=== PATIENT | female | born 1985 | race Caucasian/White ===

== ENCOUNTER → 2016-08-22 | Outpatient (CLI) | payer OTHER ==
[~2016-08-22] MED LIST: PRENTAB26 PO
== END | disposition home or self-care (01) ==
LOC: C.PAPS 11:32
PROVIDERS: ATTEND Obstetrics & Gynecology
DX: Z01.419 Encounter for gynecological examination (general) (routine) without abnormal findings (principal)

== ENCOUNTER → 2017-07-01 | Outpatient (CLI) | payer OTHER | END | disposition home or self-care (01) | LOC: C.LABSPEC 15:46 | PROVIDERS: ATTEND Obstetrics & Gynecology | DX: Z34.91 Encounter for supervision of normal pregnancy, unspecified, first trimester (principal) ==

== ENCOUNTER → 2017-07-08 | Outpatient (CLI) | payer OTHER ==
[2017-07-08 13:14] LABS: BASO % 0.1 %; BASO ABS # 0.01 K/uL (0-0.2); EOS % 0.2 %; EOS ABS # 0.02 K/uL (0-0.5); HEMATOCRIT 43.3 % (37-47); HEMOGLOBIN 14.7 g/dL (12.0-16.0); IG# 0.03 K/uL (0.00-0.02); LYMPH % 24.6 %; LYMPH ABS # 2.59 K/uL (1.2-3.4); MEAN CELL VOLUME 88.5 fL (80-100); MEAN CORPUSCULAR HEMOGLOBIN 30.1 pg (25-34); MEAN CORPUSCULAR HGB CONC 33.9 g/dl (32-36); MEAN PLATELET VOLUME 9.8 fL (7.4-10.4); MONO % 11.1 %; MONO ABS # 1.17 K/uL (0.11-0.59); NEUT % 63.7 %; NEUT ABS # 6.71 K/uL (1.4-6.5); PLATELET COUNT 298 K/uL (130-400); RED CELL DISTRIBUTION WIDTH CV 13.5 % (11.5-14.5); WHITE BLOOD COUNT 10.53 K/uL (4.8-10.8)
== END | disposition home or self-care (01) ==
LOC: C.LAB1850 12:23
PROVIDERS: ATTEND Obstetrics & Gynecology
DX: Z34.91 Encounter for supervision of normal pregnancy, unspecified, first trimester (principal)

== ENCOUNTER 2020-12-12 13:00 | Inpatient (IN) ==
[2020-12-13] MEDS ORDERED: OXYTOCIN 30 UNITS/500 ML BAG IV PRN ×2 (19:38→20:20)
--- NOTE | 2020-12-13 19:49 | History & Physical Report ---
Date of Service December 13, 2020 Assessment & Plan (1) 40 weeks gestation of : (2) Encounter for induction of labor: Plan: admit, gbs neg, covid neg. plan pit induction, arom. epidural on demand. fetus category one. anticipate . Admission and Anticipated Discharge Date Admission Date: December 13, 2020 History of Present Illness Chief Complaint: induction Primary Care Provider: Annia Vann PA-C Patient is a 35yowf with iup at 40 3/7 weeks who presents for induction for postdates. She notes she is having contractions. no vb/lof. +fm. uncomplicated. ama labs--Blood Type A Negative 05/02/20 Antibody Screen NEGATIVE 09/19/20 Hemoglobin 13.1 g/dL (12.0-16.0) 09/19/20 Hematocrit 39.3 % (37-47) 09/19/20 Mean Corpuscular Volume 91.1 fL (80-100) 05/02/20 Platelet Count 337 K/uL (130-400) 05/02/20 Rubella IgG Antibody Immune (Immune) 05/02/20 Rapid Plasma Reagin Nonreactive (Nonreactive) 05/02/20 Hepatitis B Surface Antigen Neg (Neg) 05/02/20 HIV (1&2) Ab and P24 Ag, 4th Gener Neg (Neg) 05/02/20 Glucose 1 Hour 50 gm Load 133 mg/dl (70-130) H 09/19/20 OB Optional Labs: Chlamydia trachomatis RNA NOT DETECTED (NOT DETECTED) 05/02/20 Neisseria gonorrhoeae RNA NOT DETECTED (NOT DETECTED) 05/02/20 Thyroid Stimulating Hormone (TSH) 2.450 uIu/ml (0.300-4.500) 04/21/19 Labs Reviewed: declines cfDNA declines cf/sma Allergies Allergy/AdvReac Type Severity Reaction Status Date / Time No Known Allergies Allergy Verified 12/12/20 14:42 Home Medications Medication Instructions Recorded Confirmed Type prenat.vits,alan,sig-lens-kncbw 1 tab PO DAILY #30 tab 04/09/20 12/13/20 Rx Patient History Medical History Atypical squamous cells of undetermined significance (ASC-US) on cervical Pap smear 12/10/11 Encounter for induction of labor Encounter for pre-operative examination Normal in multigravida, antepartum Uterine contractions Surgical History History of wisdom tooth extraction Family History Grandmother (Maternal) Ovarian cancer Breast cancer Grandfather (Paternal) Diabetes Denies family history of Colorectal cancer Uterine cancer Social History Smoking Status: Never smoker Second Hand Exposure: No; Hx Alcohol Use: No Hx Substance Use: No Preferred Language: Occitan Communication Ability: Effective 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 current occupational status: employed current occupation: self employeed. Other Information That Helps Us Care for You: No Feels Safe at Home: Yes Safety Concerns: Feels Safe At This Time Assistive Devices: None OB History 02/27--38 weeks 8#10, male, 18--40 weeks, , 9#10, female Physical Exam Constitutional: WD/WN, vitals as above Gastrointestinal (Abdomen): soft, gravid, nt efw 9-10# Psychiatric: A+Ox3, euthymic affect Genitourinary: cx--4-5/50/-3 toco--irregular contractions efm--140s wtih mod variaiblity, accels present, no decels Results & Data ([place]) Vital Signs (Past 12 Hours) Vital Signs Temp Pulse Resp BP 12/13/20 19:22 37.0 C 87 18 128/75 Coding Level of Care Code None Diagnoses 40 weeks gestation of Z3A.40 Encounter for induction of labor Z34.90
[2020-12-13 20:12] LABS: Hematocrit (blood only) 36.9 % (37-47); Hemoglobin 12.3 g/dL (12.0-16.0); Mean Corpuscular Hemoglobin 28.2 pg (25-34); Mean Corpuscular Hgb Conc 33.3 g/dL (32-36); Mean Corpuscular Volume 84.6 fL (80-100); Mean Platelet Volume 10.5 fL (7.4-10.4); Platelet Count 261 K/uL (130-400); RDW Coefficient of Variation 14.2 % (11.5-14.5); RDW Standard Deviation 44.2 fL (36.4-46.3); Red Blood Count 4.36 M/uL (4.2-5.4); White Blood Count 8.56 K/uL (4.8-10.8)
[2020-12-13] MEDS: LACTATED RINGER'S 1,000 ML IV PRN ×2 (20:21→23:21)
[2020-12-13] MEDS ORDERED: fentaNYL citrate 100 MCG/2 ML VIAL ONE (22:49)
[2020-12-13] MEDS ORDERED: BUPIVACAINE 0.25% 30 ML VIAL ONE (22:49)
[2020-12-13] MEDS ORDERED: SODIUM CHLORIDE 0.9% INJ 10 ML VIAL ONE (22:49)
[2020-12-13] MEDS ORDERED: ePHEDrine sulfate 50 MG/ML AMP ONE (22:49)
[2020-12-13] MEDS ORDERED: fentaNYL 2MCG/ML ROPIVACAINE 1.25MG/ML 100 ML BAG EPI ONE (22:50)
[2020-12-14] MEDS ORDERED: diphenhydrAMINE 50 MG/ML VIAL IV PRN (00:25)
[2020-12-14] MEDS ORDERED: ePHEDrine sulfate 50 MG/ML AMP IV PRN (00:25)
[2020-12-14] MEDS ORDERED: ONDANSETRON INJ 2 MG/ML 2 ML VIAL IV PRN (00:25)
[2020-12-14] MEDS ORDERED: NALBUPHINE HCL INJ 10 MG/ML AMP IV PRN (00:25)
[2020-12-14] MEDS ORDERED: NALOXONE HCL 1 MG in SODIUM CHLORIDE 0.9% 1000ML 1,000 ML IV PRN (00:25)
[2020-12-14] MEDS ORDERED: fentaNYL 2MCG/ML ROPIVACAINE 1.25MG/ML 100 ML BAG EPI PRN (00:25)
[2020-12-14] MEDS ORDERED: NALOXONE HCL 0.4 MG/1 ML VIAL/CARP IV PRN (00:25)
--- NOTE | 2020-12-14 00:25 | Anesthesia Procedure Note ---
Date of Service December 14, 2020 Anesthesia Post Epidural Note Vital Signs Vital Signs: Temp Pulse Resp BP Pulse Ox 36.9 C 102 H 18 118/56 L 98 12/13/20 23:00 12/14/20 00:21 12/14/20 00:00 12/14/20 00:21 12/14/20 00:16 Notes Mental Status: alert / awake / arousable Nausea / Vomiting: adequately controlled Pain: adequately controlled Airway Patency, RR, SpO2: stable & adequate BP & HR: stable & adequate Hydration State: stable & adequate Neuraxial Anesthesia: was administered and sensory block is resolving Anesthetic Complications: no major complications apparent and Pt Satisfied with anesthetic care Epidural: Removed without complications and With tip intact
--- NOTE | 2020-12-14 00:25 | Anesthesiology Consultation ---
Date of Service December 14, 2020 Assessment & Plan Chart Review Chart Review: Patient NOT seen in Pre Admission Testing and Acceptable Risk for Labor Epidural Consults Requested none ASA ASA2 Proposed Anesthesia Anesthesia Type: Labor Epidural Risk / Benefits Reviewed With: PT / POA / Parent / Guardian, Accepts Plan and Informed Consent Obtained History Height/Weight Height: 5 ft 6 in Weight: 99.337 kg Allergies Allergy/AdvReac Type Severity Reaction Status Date / Time No Known Allergies Allergy Verified 12/12/20 14:42 Medications Home Medications Medication Instructions Recorded Confirmed Last Taken prenat.vits,alan,idu-hsfy-direv 1 tab PO DAILY #30 tab 04/09/20 12/13/20 12/06/20 08:00 Active Medications Generic Name Dose Route Start Last Admin Trade Name Freq PRN Reason Stop Dose Admin Lactated Ringer's 1,000 mls @ 125 mls/hr 12/13/20 19:38 12/13/20 23:21 Lr IV 12/15/20 19:37 999 mls/hr .Q8H PRN Administration L&D Protocol Protocol Oxytocin 30 units in 500 mls @ 11 mls/hr 12/13/20 20:20 12/13/20 23:00 Pitocin IV 12/15/20 20:19 0.66 units/hr .Q24H PRN 11 mls/hr Labor Induction/Augmentation Titration Protocol 0.66 UNITS/HR Past Medical History Medical History Atypical squamous cells of undetermined significance (ASC-US) on cervical Pap smear 12/10/11 Encounter for induction of labor Encounter for pre-operative examination Normal in multigravida, antepartum Uterine contractions Exercise / Class Metabolic Activity II 4-5 Yardwork/Stairs/Walk up hill Past Family History Family History Grandmother (Maternal) Ovarian cancer Breast cancer Grandfather (Paternal) Diabetes Denies family history of Colorectal cancer Uterine cancer Past Surgical History Surgical History History of wisdom tooth extraction Past Anesthesia History No Hx of Anesthesia Complications and No Family Hx of Anesthesia Complications History of PONV No Hx of PONV and No Hx of Motion Sickness Social History Smoking Status: Never smoker Hx Alcohol Use: No Hx Substance Use: No substance use type: does not use Physical Exam Vital Signs Last Vital Signs Temp 36.9 C 12/13/20 23:00 Pulse 102 H 12/14/20 00:21 Resp 18 12/14/20 00:00 BP 118/56 L 12/14/20 00:21 Pulse Ox 98 12/14/20 00:16 ENMT Mouth: no dentition abnormality Thyromental Distance: > or= 3.5 Finger Breadths Mallampati Class: II Neck normal visual inspection Respiratory normal respiratory effort Auscultation: lungs clear to auscultation bilaterally Cardiovascular Rate/Rhythm: regular rate and regular rhythm Psychiatric Orientation: alert Testing Laboratory Results 12/13/20 20:00
--- NOTE | 2020-12-14 00:37 | Delivery Summary ---
Vaginal Delivery Summary Date of Service December 14, 2020 Vaginal Delivery Summary [facility] Pre-operative Diagnosis: at 40 4/7 Post-operative Diagnosis: same Procedure: pitocin induction epidural arom EBL: 300cc Anesthesia: epidural Procedure: The patient presented to labor and delivery for postdates induction. She was admitted and underwent pitocin induction. She received an epidural when she became uncomfortable. Shorthly thereafter, she felt pressure, was c/c/+1. AROM for clear fluid. The patient pushed for 2 contractions to deliver a viable male in clarisa position. The rest of the was then delivered without difficulty through a loose nuchal cord. The baby was vigorous. The nose and mouth were bulb suctioned and the infant was placed in the maternal abdomen for drying and attention. Cord was clamped and cut at one minute of life. Cord blood and segment obtained. Placenta delivered spontaneous, intact with a three vessel cord. Cervix/sulci/rectum/perineum were intact. Hemostasis obtained with dilute pitocin and fundal massage. Apgars were pending. Mother and baby doing well at the end of the delivery. [facility] Vaginal Delivery Charge Delivery Type Details: [facility]
[2020-12-14] MEDS ORDERED: ACETAMINOPHEN 325 MG TAB PO PRN (00:38)
[2020-12-14] MEDS ORDERED: oxyCODONE/ACETAMINOPHEN 5mg/325mg TAB PO PRN (00:38)
[2020-12-14] MEDS ORDERED: OXYTOCIN 30 UNITS/500 ML BAG IV PRN (00:38)
[2020-12-14] MEDS ORDERED: DIPHTHERIA/TETANUS/PERTUSSIS 0.5 ML SYR/VIAL IM ONE (00:38)
[2020-12-14] MEDS ORDERED: SUPERCREAM 0.870% 15 GM JAR EXT PRN (00:38)
[2020-12-14] MEDS ORDERED: bisacodyL 10 MG SUPP PR PRN (00:38)
[2020-12-14] MEDS ORDERED: BENZOCAINE 20% AER SPR 82.5 GM CAN EXT PRN (00:38)
[2020-12-14] MEDS ORDERED: HYDROCORTISONE ACETATE 25 MG SUPP PR PRN (00:38)
[2020-12-14 06:21] LABS: Hematocrit (blood only) 37.4 % (37-47); Hemoglobin 12.4 g/dL (12.0-16.0)
--- NOTE | 2020-12-14 06:52 | Obstetrical Progress Note ---
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 Keep pt for 24 hrs. -Vitals reviewed- HDS, afebrile -A-, GBS-, Rubella immune -Encourage ambulation, regular diet -Pain control with ibuprofen, acetaminophen PRN -Encouraged , baby is having trouble latching <Liliana Pittman MD, FACOG - Last Filed: 12/14/20 06:58> (1) care following vaginal delivery: Subjective <Andrew OrtizDO - Last Filed: 12/14/20 06:55> Ambulation: ambulating normally Voiding: no voiding problems Passing Gas:: Yes Diet Tolerance:: regular diet Lochia:: Small Feeding Type:: breast feeding Current Pain Level(1-10): 3 frame changer delivery at 00:15 s/p . Patient seen and examined at bedside. Reports no acute overnight events. Review of Systems All systems reviewed & are unremarkable except as noted in HPI & below Physical Exam <Andrew Ortiz - Last Filed: 12/14/20 06:55> General: Alert, oriented, no acute distress Cardiac: Regular rate and rhythm, normal S1, S2. No murmurs appreciated. Respiratory: Clear to auscultation b/l with good air flow entry, symmetric chest rise and fall. No wheezes or crackles. No increased work of breathing or accessory muscle use Abdomen: Soft, nontender, nondistended. Fundus firm and palpable at 1 cm below umbilicus. No guarding or rebound. Skin: No rashes or lesions Extremities: Warm, dry, well-perfused with capillary refill <2s b/l. No lower extremity edema, erythema or swelling. Negative Marcelina's sign b/l. Results & Data ([facility]) <Andrew OrtizDO - Last Filed: 12/14/20 06:55> Vital Signs (Past 12 Hours) Vital Signs Temp Pulse Pulse Resp BP BP Pulse Ox 12/14/20 03:00 37.1 C 96 H 20 128/64 12/14/20 02:22 90 117/64 12/14/20 02:20 90 117/64 12/14/20 02:07 90 121/70 12/14/20 01:52 113 H 127/79 12/14/20 01:50 90 18 117/64 12/14/20 01:37 108 H 121/63 12/14/20 01:22 100 H 131/68 12/14/20 01:20 86 18 132/62 12/14/20 01:07 86 132/62 12/14/20 01:05 86 18 132/62 12/14/20 00:52 151 H 115/70 12/14/20 00:50 18 115/70 12/14/20 00:37 203 H 105/56 L 12/14/20 00:35 18 105/56 L 12/14/20 00:21 102 H 118/56 L 12/14/20 00:20 18 105/56 L 12/14/20 00:16 103 H 124/59 L 98 12/14/20 00:11 133 H 95 12/14/20 00:08 100 H 89 L 12/14/20 00:07 103 H 138/62 12/14/20 00:06 104 H 100 12/14/20 00:02 103 H 122/63 12/14/20 00:01 92 H 100 12/14/20 00:00 18 12/13/20 23:56 98 H 118/55 L 100 12/13/20 23:55 18 12/13/20 23:51 105 H 100 12/13/20 23:50 109 H 18 125/60 12/13/20 23:48 107 H 142/67 H 12/13/20 23:47 112 H 137/70 12/13/20 23:45 117 H 20 100 12/13/20 23:44 112 H 172/74 H 12/13/20 23:42 129 H 149/73 H 91 12/13/20 23:40 94 H 20 136/63 99 12/13/20 23:35 99 H 94 12/13/20 23:34 113 H 89 L 12/13/20 23:30 94 H 100 12/13/20 23:25 79 100 12/13/20 23:23 92 H 125/90 12/13/20 23:21 96 H 94 12/13/20 23:20 105 H 98 12/13/20 23:00 36.9 C 18 12/13/20 22:24 96 H 127/63 12/13/20 21:23 96 H 113/74 12/13/20 20:22 81 128/67 12/13/20 19:22 37.0 C 87 18 128/75 <Liliana Pittman MD, FACOG - Last Filed: 12/14/20 06:58> Co-Signing Physician Notes Resident Physician Supervision Note: I interviewed and examined the patient. Discussed with Dr. Ortiz and agree with findings and plan as documented in the note. Any exceptions or clarifications are listed here: Doing well. Routine care. Documented By: Liliana Pittman MD, FACOG
[2020-12-14] MEDS: IBUPROFEN 600 MG TAB PO PRN ×4 (08:25→21:12)
[2020-12-14] MEDS: PRENATAL VITAMIN 1 TAB PO SCH (08:26)
[2020-12-14] MEDS: DOCUSATE SODIUM 100 MG CAP PO SCH ×2 (08:26→21:13)
[2020-12-15] MEDS: IBUPROFEN 600 MG TAB PO PRN (06:52)
--- NOTE | 2020-12-15 07:03 | Obstetrical Progress Note ---
Date of Service <Andrew Ortiz DO - Last Filed: 12/15/20 07:03> December 15, 2020 Assessment & Plan <Andrew Ortiz DO - Last Filed: 12/15/20 07:03> (1) care following vaginal delivery: 35 yo PPD 1 s/p at 40 weeks -Continue routine care, D/C today. -Vitals reviewed- HDS, afebrile -A-, GBS-, Rubella immune; Rhogam received yesterday. -Encourage ambulation, regular diet -Pain control with ibuprofen, acetaminophen PRN -Encouraged -F/u in 6 weeks with OB <Alaina Watson MD - Last Filed: 12/15/20 08:14> (1) care following vaginal delivery: Subjective <Andrew Ortiz DO - Last Filed: 12/15/20 07:03> Ambulation: ambulating normally Voiding: no voiding problems Passing Gas:: Yes Diet Tolerance:: regular diet Lochia:: Small Feeding Type:: breast feeding Current Pain Level(1-10): 3 PPD 1 s/p . Patient seen and examined at bedside. Reports no acute overnight events. Review of Systems All systems reviewed & are unremarkable except as noted in HPI & below Physical Exam <Andrew Ortiz DO - Last Filed: 12/15/20 07:03> General: Alert, oriented, no acute distress Cardiac: Regular rate and rhythm, normal S1, S2. No murmurs appreciated. Respiratory: Clear to auscultation b/l with good air flow entry, symmetric chest rise and fall. No wheezes or crackles. No increased work of breathing or accessory muscle use Abdomen: Soft, nontender, nondistended. Fundus firm and palpable at 2 cm below umbilicus. No guarding or rebound. Skin: No rashes or lesions Extremities: Warm, dry, well-perfused with capillary refill <2s b/l. No lower extremity edema, erythema or swelling. Negative Marcelina's sign b/l. Results & Data ([facility]) <Andrew Ortiz - Last Filed: 12/15/20 07:03> Vital Signs (Past 12 Hours) Vital Signs Temp Pulse Resp BP 12/15/20 00:15 37 C 72 16 113/74 12/14/20 19:50 36.9 C 84 16 119/76 <Alaina Watson MD - Last Filed: 12/15/20 08:14> Co-Signing Physician Notes Resident Physician Supervision Note: I interviewed and examined the patient. Discussed with Dr. Ortiz and agree with findings and plan as documented in the note. Any exceptions or clarifications are listed here: PP1, stable for d/c home today Documented By: Alaina Watson MD
[2020-12-15] MEDS: DOCUSATE SODIUM 100 MG CAP PO SCH (08:02)
[2020-12-15] MEDS: PRENATAL VITAMIN 1 TAB PO SCH (08:02)
[2020-12-15] MEDS ORDERED: bisacodyL 5 MG TABEC PO SCH (20:00)
== END 2020-12-15 13:17 | disposition home or self-care (01) | DRG 807 ==
LOC: 4S1 12-13 18:50 → 4S2 12-14 03:11
DX: Z3A.40 40 weeks gestation of pregnancy; O48.0 Post-term pregnancy; Z37.0 Single live birth; O69.81X0 Labor and delivery complicated by cord around neck, without compression, not applicable or unspecified

== ENCOUNTER 2024-09-15 07:44 | Inpatient (IN) ==
[2024-09-15] MEDS ORDERED: ACETAMINOPHEN 500 MG TAB PO PRN (08:04)
[2024-09-15] MEDS ORDERED: CALCIUM CARBONATE 500 MG CHEWABLE TAB PO PRN (08:04)
[2024-09-15] MEDS ORDERED: OXYTOCIN 30 UNITS/NSS 30 UNITS/500 ML BAG IV PRN ×2 (08:04→13:29)
[2024-09-15] MEDS ORDERED: LIDOCAINE 1% LOCAL 20 ML VIAL INFIL PRN (08:04)
[2024-09-15 08:25] LABS: Hematocrit (blood only) 39.8 % (37.0-47.0); Hemoglobin 13.3 g/dl (12.0-16.0); Mean Corpuscular Hemoglobin 29.7 pg (25.0-34.0); Mean Corpuscular Volume 88.8 fL (80.0-100.0); Platelet Count 243 K/uL (130-400); RDW Standard Deviation 45.5 fL (36.4-46.3); Red Blood Count 4.48 M/uL (4.20-5.40); White Blood Count 8.88 K/ul (4.8-10.8)
--- NOTE | 2024-09-15 08:51 | History & Physical Report ---
Date of Service September 15, 2024 Assessment & Plan (1) Elderly multigravida: Plan: Admit to L&D. EFM/toco. Labs. Pitocin. Unsure about epidural. Admission and Anticipated Discharge Date Admission Date: September 15, 2024 History of Present Illness Chief Complaint: IOL Primary Care Provider: Annia Vann PA-C 39yo @ 40 0/, IOL. and Delivery Plans AMA>40@del *Anatomy Scan @ 20wks----normal * Echo 22-24wks 05/24/24 @ C----normal *Growth scan @32wk ----46%ile *Weekly NST's @36 wks *Twice weekly NST @38wks *Weekly KAJAL's @38wks *Deliver by 40 wks ( IOL scheduled 09/15/24) Need for Rhogam d/t Rh negative mother *Rhogam given 06/30/24 - SP Allergies Allergy/AdvReac Type Severity Reaction Status Date / Time No Known Allergies Allergy Verified 09/14/24 14:36 Home Medications Medication Instructions Recorded Confirmed Type 21-iron fu-folic acid PO 02/17/24 09/14/24 History [ Complete] breast pump #1 ea 08/17/24 09/14/24 Rx Patient History Medical History History of chicken pox Breast lump External hemorrhoids Atypical squamous cells of undetermined significance (ASC-US) on cervical Pap s mear Surgical History History of wisdom tooth extraction Family History Grandmother (Maternal) Ovarian cancer Breast cancer Grandfather (Paternal) Diabetes Denies family history of Colorectal cancer Uterine cancer Social History (Updated 09/15/24 @ 08:07 by Ashley Moreno RN) Smoking Status: Never smoker Second Hand Exposure: No; Do You Dip or Chew Tobacco: No; Hx Alcohol Use: No Hx Substance Use: No Preferred Language: Northern Irish Communication Ability: Effective Hand Bindery Assembly Worker Required: No Beliefs That Will Affect Care: None marital status: marital status details: Yun (36) [phone] Current Living Situation: Spouse and Family Current Living Situation Comment: lives with spouse, children, dogs, and cat, pts mom changes litter. current occupational status: employed current occupation: self employed-landscape/cleaning Other Information That Helps Us Care for You: No Feels Safe at Home: Yes Assistive Devices: None Review of Systems All systems reviewed & are unremarkable except as noted in HPI & below Physical Exam Physical Exam: FHT Cat [address] [place] irreg SVE 4/70/-1 Constitutional: WD/WN, vitals as above Respiratory: normal respiratory effort, lungs clear to auscultation no respiratory distress Cardiovascular: Rate/Rhythm: regular rate and regular rhythm Gastrointestinal (Abdomen): Inspection/Auscultation: abdomen normal to inspection Percussion/Palpation: abdomen soft; abdomen nontender Gravid. No s/s chorio or abruption. Skin: no rashes, warm and dry Psychiatric: A+Ox3, euthymic affect Results & Data Vital Signs (Past 12 Hours) Vital Signs Temp Pulse Resp BP 09/15/24 08:08 36.9 C 71 20 119/67 09/15/24 08:01 71 119/67 Coding Level of Care Code None Diagnoses Elderly multigravida O09.529
[2024-09-15] MEDS: LACTATED RINGER'S 1,000 ML IV PRN (09:00)
[2024-09-15] MEDS: OXYTOCIN 30 UNITS/NSS 30 UNITS/500 ML BAG IV PRN (09:01)
[2024-09-15] MEDS ORDERED: NALOXONE HCL 1 MG in SODIUM CHLORIDE 0.9% 1,000 ML IV PRN (12:02)
[2024-09-15] MEDS ORDERED: SODIUM CHLORIDE 0.9% PF INJ 10 ML VIAL EPI PRN (12:02)
[2024-09-15] MEDS ORDERED: diphenhydrAMINE 50 MG/ML VIAL IV PRN (12:02)
[2024-09-15] MEDS ORDERED: ROPIVACAINE 0.5% PF 5 MG/ML 20 ML VIAL EPI PRN (12:02)
[2024-09-15] MEDS ORDERED: NALBUPHINE HCL INJ 10 MG/ML AMP IV PRN (12:02)
[2024-09-15] MEDS ORDERED: BUPIVACAINE 0.25% PF 30 ML VIAL EPI PRN (12:02)
[2024-09-15] MEDS ORDERED: LIDOCAINE 2% MPF LOCAL 5 ML VIAL EPI PRN (12:02)
[2024-09-15] MEDS ORDERED: NALOXONE HCL 0.4 MG/1 ML VIAL/CARP IV PRN (12:02)
--- NOTE | 2024-09-15 12:03 | Anesthesiology Consultation ---
Date of Service September 15, 2024 Assessment & Plan Chart Review Chart Review: Acceptable Risk for Labor Epidural Consults Requested none History Height/Weight Height: 5 ft 6 in Weight: 101.605 kg Allergies Allergy/AdvReac Type Severity Reaction Status Date / Time No Known Allergies Allergy Verified 09/14/24 14:36 Medications Home Medications Medication Instructions Recorded Confirmed Last Taken 21-iron fu-folic acid PO 02/17/24 09/14/24 08/31/24 [ Complete] breast pump #1 ea 08/17/24 09/14/24 Unknown Active Medications Generic Name Dose Route Start Last Admin Trade Name Freq PRN Reason Stop Dose Admin Lactated Ringer's 1,000 mls @ 125 mls/hr 09/15/24 08:04 09/15/24 09:00 Lr IV 09/17/24 08:03 125 mls/hr .Q8H PRN Administration L&D Protocol Protocol Oxytocin 30 units in 500 mls @ 7 mls/hr 09/15/24 08:43 09/15/24 10:35 Pitocin 30 Units/Nss IV 09/17/24 08:42 0.42 units/hr .Q24H PRN 7 mls/hr Labor Induction/Augmentation Titration Protocol 0.42 UNITS/HR Past Medical History Medical History History of chicken pox Breast lump External hemorrhoids Atypical squamous cells of undetermined significance (ASC-US) on cervical Pap smear Past Family History Family History Grandmother (Maternal) Ovarian cancer Breast cancer Grandfather (Paternal) Diabetes Denies family history of Colorectal cancer Uterine cancer Past Surgical History Surgical History History of wisdom tooth extraction Social History Smoking Status: Never smoker Do You Dip or Chew Tobacco: No Hx Alcohol Use: No Hx Substance Use: No substance use type: does not use Physical Exam Vital Signs Last Vital Signs Temp 36.8 C 09/15/24 11:18 Pulse 72 09/15/24 11:57 Resp 20 09/15/24 11:18 BP 120/75 09/15/24 11:18 Pulse Ox 100 09/15/24 11:57 Testing Laboratory Results 09/15/24 08:09 Blood Type A Negative 09/15/24 08:09 Antibody Screen NEGATIVE 09/15/24 08:09
[2024-09-15] MEDS: LIDOCAINE 2%/EPINEPHRINE 1:200,000 20 ML PF EPI STA (12:49)
[2024-09-15] MEDS: fentANYL 2 MCG/ML BUPIVacaine 0.125%-NSS 100ML BAG EPI PRN (12:49)
--- NOTE | 2024-09-15 13:19 | Delivery Summary ---
Vaginal Delivery Summary Date of Service September 15, 2024 Vaginal Delivery Summary [facility] Vaginal Delivery Summary: Pre-delivery diagnoses: 39yo @ 40 0/7, AMA, Rh neg, IOL Post-delivery diagnoses: same Procedure: spontaneous vaginal delivery Surgeon: Sabi Bonds DO Complications: none Findings: Viable female . Apgars: 8/9 . Weight pending, please see nursery records Estimated QBL: 100ml Description of delivery: The patient progressed to complete with epidural anesthesia. AROM meconium. She then began to push. She spontaneously vaginally delivered a viable from the cephalic presentation. The head delivered in FARHANA position. The anterior shoulder delivered, followed by the posterior shoulder, followed by the body. The baby was placed on mother's abdomen and a spontaneous cry was heard. Delayed cord clamping was employed, and the cord was doubly clamped and cut. Cord blood was obtained. The placenta was delivered spontaneously intact with a 3-vessel cord. The uterus and vagina were swept of clots and debris. IV pitocin was given. The uterus became firm. The cervix, vagina, and perineum were inspected and no lacerations were noted. Excellent hemostasis was observed. The mother and baby are recovering in stable and good condition in the room. Sponge and instrument counts were correct x 2. Sabi Bonds DO [facility] Vaginal Delivery Charge Vaginal Delivery Codes: 28886 global code for the antepartum, delivery, and post- Delivery Type Details: [facility]
[2024-09-15] MEDS ORDERED: ACETAMINOPHEN 325 MG TAB PO PRN (13:29)
[2024-09-15] MEDS ORDERED: HYDROCORTISONE ACETATE 25 MG SUPP PR PRN (13:29)
[2024-09-15] MEDS: DIPHTHER/TETAN/PERTUS Vaccine (Tdap, Adol/Adult) 0.5mL IM ONE (13:49)
--- NOTE | 2024-09-15 13:57 | Anesthesia Procedure Note ---
Date of Service September 15, 2024 Anesthesia Post Epidural Note Vital Signs Vital Signs: Temp Pulse Resp BP Pulse Ox 36.8 C 74 18 124/62 98 09/15/24 11:18 09/15/24 13:54 09/15/24 13:45 09/15/24 13:54 09/15/24 13:08 Pain Intensity Bilateral Abdomen: Pain Intensity: 0 Notes Mental Status: alert / awake / arousable and participated in evaluation Nausea / Vomiting: adequately controlled Pain: adequately controlled Airway Patency, RR, SpO2: stable & adequate BP & HR: stable & adequate Hydration State: stable & adequate Neuraxial Anesthesia: was administered and sensory block is resolving Anesthetic Complications: no major complications apparent and Pt Satisfied with anesthetic care Epidural: Removed without complications and With tip intact
[2024-09-15] MEDS: BENZOCAINE 20% SPRY 85 APPLN/85 GM CAN EXT PRN (15:22)
[2024-09-15] MEDS: IBUPROFEN 600 MG TAB PO PRN (19:17)
[2024-09-15] MEDS: DOCUSATE SODIUM 100 MG CAP PO SCH (21:22)
[2024-09-15] MEDS: BUPIVACAINE 0.25% PF 30 ML VIAL EPI STA (23:28)
[2024-09-15] MEDS: SODIUM CHLORIDE 0.9% PF INJ 10 ML VIAL EPI STA (23:29)
[2024-09-16 03:57] VITALS: TEMP 98.1
--- NOTE | 2024-09-16 07:50 | Obstetrical Progress Note ---
Date of Service September 16, 2024 Assessment & Plan (1) care and examination: PPD#1 doing well. Desires DC home - instructions reviewed. Followup 6w in office. Subjective Ambulation: ambulating normally Voiding: no voiding problems Diet Tolerance:: regular diet Lochia:: Moderate Review of Systems All systems reviewed & are unremarkable except as noted in HPI & below Physical Exam Constitutional WD/WN, vitals as above no acute distress Respiratory normal respiratory effort Cardiovascular Rate/Rhythm: regular rate and regular rhythm Gastrointestinal (Abdomen) Inspection/Auscultation: abdomen normal to inspection; abdomen not distended Percussion/Palpation: abdomen soft Genitourinary OB Exam Abdomen: + fundal height Fundus: + firm; not tender Results & Data Vital Signs (Past 12 Hours) Vital Signs Temp Pulse Resp BP Pulse Ox O2 Del Method 09/16/24 03:56 36.7 C 83 16 126/80 95 Room Air 09/15/24 23:41 36.6 C 86 16 131/84 96 Room Air
[2024-09-16] MEDS: PRENATAL VITAMIN 1 TAB PO SCH (08:13)
[2024-09-16 08:16] LABS: Hematocrit (blood only) 40.3 % (37.0-47.0); Hemoglobin 13.4 g/dl (12.0-16.0)
[2024-09-16 12:52] VITALS: BP 131/82; PULSE 83; RESP 18; O2SAT 96
== END 2024-09-16 14:00 | disposition home or self-care (01) | DRG 807 ==
LOC: 4S1 07:44 → 4E2 16:01